=== PATIENT | male | born 1970 | race Asian ===

== ENCOUNTER 2023-08-25 08:51 | Emergency (ER) | payer OTHER ==
[2023-08-25 09:07] VITALS: RESP 18
--- NOTE | 2023-08-25 09:53 | ED ---
General Adult HPI - General Chief complaint: Abdominal Pain Stated complaint: KEN Time Seen by Provider: 08/25/23 09:06 Source: patient, RN notes reviewed Mode of arrival: ambulatory Limitations: no limitations - History of Present Illness Initial comments: 53-year-old male presents to the emergency department with a chief complaint of constipation. Patient reports that he has not had a bowel movement in the last week. He reports abdominal bloating. He reports that his blood in his worsened over the last 2 days. He denies any constitutional symptoms such as fever or chills, nausea or vomiting, melena or hematochezia. He reports that his abdominal pain makes it hard to take a deep breath due to feeling bloated. He has not tried anything for his symptoms. - Related Data Previous Rx's Medication Instructions Recorded Glycerin Adult Suppository 1 each RECTAL DAILY #7 supp 08/25/23 Lactulose 20 gm PO BID #300 ml 08/25/23 Allergies Allergy/AdvReac Type Severity Reaction Status Date / Time No Known Allergies Allergy Verified 08/25/23 09:04 Review of Systems ROS Statement: Those systems with pertinent positive or pertinent negative responses have been documented in the HPI. ROS Other: All systems not noted in ROS Statement are negative. Past Medical History Past Medical History: No Reported History History of Any Multi-Drug Resistant Organisms: None Reported Past Surgical History: No Surgical Hx Reported Past Psychological History: No Psychological Hx Reported Smoking Status: Current some day smoker Past Alcohol Use History: Occasional Past Drug Use History: None Reported General Exam - General Exam Comments Initial Comments: General: Alert, in no acute distress Head: atraumatic normocephalic. Eyes PERRL, EOMI intact, mucous membranes moist Respiratory: Lungs clear to auscultation bilaterally Cardiovascular: Rate regular rate and Abdominal: Soft without guarding or rebound, mildly distended no tenderness Extremities: Normal inspection with full range of motion and normal capillary refill Neuroogic: alert and oriented 3, CN II-XII intact, able to ambulate with steady gait Skin: warm dry and intact with normal color Limitations: no limitations Course Vital Signs 08/25/23 08/25/23 09:01 10:55 Temperature 97.4 F L 98.3 F Pulse Rate 97 94 Respiratory 18 18 Rate Blood Pressure 183/121 130/99 O2 Sat by Pulse 99 95 Oximetry Medical Decision Making - Medical Decision Making Was pt. sent in by a medical professional or institution (HAN Camejo, AUTOMOTIVE SERVICE TECHNICIAN, urgent care, hospital, or halfway...) When possible be specific @ -[No] Did you speak to anyone other than the patient for history (EMS, parent, family, police, friend...)? What history was obtained from this source @ -[No] Did you review nursing and triage notes (agree or disagree)? Why? @ -[I reviewed and agree with nursing and triage notes] Were old charts reviewed (outside hosp., previous admission, EMS record, old EKG, old radiological studies, urgent care reports/EKG's, halfway records)? Report findings @ -[No old charts were reviewed] Differential Diagnosis (chest pain, altered mental status, abdominal pain women, abdominal pain men, vaginal bleeding, weakness, fever, dyspnea, syncope, headache, dizziness, GI bleed, back pain, seizure, CVA, palpatations, mental health, musculoskeletal)? @ -[not applicable] EKG interpreted by me (3pts min.). @ -[As above] X-rays interpreted by me (1pt min.). @ -KUB x-ray does not reveal any marked stool burden or obstructive pattern CT interpreted by me (1pt min.). @ -[None done] U/S interpreted by me (1pt. min.). @ -[None done] What testing was considered but not performed or refused? (CT, X-rays, U/S, labs)? Why? @ -[None] What meds were considered but not given or refused? Why? @ -[None] Did you discuss the management of the patient with other professionals (professionals i.e. HAN Camejo, AUTOMOTIVE SERVICE TECHNICIAN, lab, RT, psych nurse, director of social work, grab operator, teacher, inspectors and regulatory officers, porter sample case)? Give summary @ -[No] Was smoking cessation discussed for >3mins.? @ -[No] Was critical care preformed (if so, how long)? @ -[No] Were there social determinants of health that impacted care today? How? (Homelessness, low income, unemployed, alcoholism, drug addiction, transportation, low edu. Level, literacy, decrease access to med. care, fpc, rehab)? @ -[No] Was there de-escalation of care discussed even if they declined (Discuss DNR or withdrawal of care, Hospice)? DNR status @ -[No] What co-morbidities impacted this encounter? (DM, HTN, Smoking, COPD, CAD, Cancer, CVA, ARF, Chemo, Hep., AIDS, mental health diagnosis, sleep apnea, morbid obesity)? @ -[None] Was patient admitted / discharged? Hospital course, mention meds given and route, prescriptions, significant lab abnormalities, going to OR and other pertinent info. @ Discharged. This is a 53-year-old male who presents the emergency department with a chief complaint of constipation. Patient had a thorough history and physical exam performed. Physical exam essentially unremarkable. Abdomen is soft with non-patient will be given lactulose and glycerin suppository. Return precautions discussed at length. Discharged in stable condition. Case is discussed with , ED attending who agrees with plan of care Undiagnosed new problem with uncertain prognosis? @ -[No] Drug Therapy requiring intensive monitoring for toxicity (Heparin, Nitro, Insulin, Cardizem)? @ -[No] Were any procedures done? @ -[No] Diagnosis/symptom? @ -Constipation Acute, or Chronic, or Acute on Chronic? @ -Acute Uncomplicated (without systemic symptoms) or Complicated (systemic symptoms)? @ -Uncompplicated] Side effects of treatment? @ -[No] Exacerbation, Progression, or Severe Exacerbation? @ -[No] Poses a threat to life or bodily function? How? (Chest pain, [place], [place], pneumonia, PE, COPD, DKA, ARF, appy, cholecystitis, CVA, Diverticulitis, Homicidal, Suicidal, threat to staff... and all critical care pts) @ -Low likelihood Disposition Clinical Impression: Constipation, Bloating Disposition: HOME SELF-CARE Condition: Stable Instructions (If sedation given, give patient instructions): Constipation (DC), High Fiber Diet (ED), Gas and Bloating (ED), Fleet Enema (ED) Additional Instructions: lease take lactulose to promote bowel movement Can use glycerin suppository to help promote bowel movement Please return to the nearest emergency department with high fever or nausea or vomiting or bloody stool develop Prescriptions: Glycerin Adult Suppository 1 each RECTAL DAILY #7 supp Lactulose 20 gm PO BID #300 ml Is patient prescribed a controlled substance at d/c from ED?: No Referrals: Fernandez Allen MD [Primary Care Provider] - 1-2 days Time of Disposition: 10:29
--- NOTE | 2023-08-25 10:10 | XR ---
EXAMINATION TYPE: XR KUB DATE OF EXAM: 08/25/2023 Comparison: None Clinical History: 53-year-old male constipation Findings: There is a 1 cm calcification in the right mid abdomen. Lung bases are clear. No evidence for free in traperitoneal air. No dilated small bowel or air-fluid levels. Only minimal scattered stool. Air exte nds distally to the rectum. Partially visualized antegrade intramedullary nail and screw fixation pro ximal left femur. Degenerative bony ankylosis across the pubic symphysis. Impression: 1 cm calcification right mid abdomen could represent a renal calculus. Mild scattered stool. Nonobstr uctive bowel gas pattern.
[2023-08-25 11:09] VITALS: BP 130/99; PULSE 94; TEMP 98.3
== END 2023-08-25 10:58 | disposition home or self-care (01) ==
LOC: SUPCPDRO 08:51 → EC 08:51
DX: K59.00 Constipation, unspecified (principal); F17.200 Nicotine dependence, unspecified, uncomplicated
CPT/HCPCS: 51798; 74018; 99284